=== PATIENT | male | born 1985 | race Two or more races ===

== ENCOUNTER 2018-10-02 10:51 | Emergency (ER) | payer MEDICAID ==
[~2018-10-02] VITALS: Ht 177.8 cm; Wt 93.0 kg
[2018-10-02] MEDS ORDERED: KETOROLAC 30MG/ML VIAL IV STA (11:34)
[2018-10-02] MEDS ORDERED: MORPHINE SULFATE 4 MG/ML CPJ (NOT FOR IM USE) IV ONE (11:45)
[2018-10-02 11:57] LABS: CHLORIDE 108 mEq/L (98-107)
[2018-10-02 12:01] LABS: BASOPHILS % 0.2 % (0.0-2.0); EOSINOPHILS % 0.4 % (0.0-5.0); HEMATOCRIT. 44.6 % (42.0-52.0); HEMOGLOBIN. 14.8 g/dL (14.0-18.0); LYMPHOCYTES % 14.1 % (20.0-50.0); MEAN CORPUSCULAR HEMOGLOBIN 27.6 pg (28.0-32.0); MEAN CORPUSCULAR VOLUME 83.1 fL (80.0-94.0); MEAN PLATELET VOLUME 8.7 fl (7.4-10.4); MONOCYTES % 3.2 % (2.0-8.0); NEUTROPHILS % 82.1 % (40.0-76.0); PARTIAL THROMBOPLASTIN TIME 23.6 sec (23.4-31.0); PLATELET 306 x1000/uL (130-400); PROTHROMBIN TIME 10.8 sec (9.6-11.0); RED BLOOD CELL COUNT 5.37 mill/uL (4.7-6.1); RED CELL DISTRIBUTION WIDTH 13.9 % (11.6-14.6)
[2018-10-02 12:41] LABS: CLARITY URINE CLEAR (CLEAR); COLOR URINE YELLOW (YELLOW); KETONES URINE NEGATIVE (NEGATIVE); LEUKOCYTE ESTERASE URINE NEGATIVE (NEGATIVE); NITRITE URINE NEGATIVE (NEGATIVE); OCCULT BLOOD URINE 2+ (NEGATIVE); PROTEIN URINE 1+ (NEGATIVE); SPECIFIC GRAVITY URINE 1.029 (1.005-1.030); UROBILINOGEN URINE 0.2 E.U./dL (0.2-1.0)
[2018-10-02] MEDS ORDERED: LACTATED RINGERS 1,000 ML IV STA (12:42)
[2018-10-02 15:00] VITALS: BP 148/80
[2018-10-07 06:17] LABS: CHLAMYDIA TRACHOMATIS NAA Negative (Negative); NEISSERIA GONORRHOEAE NAA Negative (Negative)
== END 2018-10-02 15:00 | disposition home or self-care (01) ==
LOC: EDBD 10:51 → ER 10:51
DX: N50.811 Right testicular pain (principal); R19.7 Diarrhea, unspecified
CPT/HCPCS: 36415; 76870; 80053; 81003; 83690; 85025; 85610; 85730; 86850; 86900; 86901; 87491; 87591; 93976; 96361; 96374; 96375; 99284; J1885; J2270; Z7610